=== PATIENT | female | born 1945 | race African-American/Black ===

== ENCOUNTER 2016-10-03 23:11 | Emergency (ER) | payer OTHER, MEDICAID ==
[~2016-10-03] VITALS: Ht 162.6 cm; Wt 50.0 kg
[~2016-10-03 23:11] MED LIST: ETOD400T2 PO; PRED5TAB48 PO; RANI150T7 PO; VITAMIN B6
[2016-10-03 23:22] VITALS: BP 152/86
== END 2016-10-04 01:00 | disposition left against medical advice (07) ==
LOC: ER 23:30
DX: Z53.21 Procedure and treatment not carried out due to patient leaving prior to being seen by health care provider (principal)

== ENCOUNTER 2016-10-25 10:58 | Inpatient (IN) | payer OTHER, MEDICAID ==
[~2016-10-25] VITALS: Ht 157.5 cm; Wt 49.9 kg
[2016-10-25] MEDS ORDERED: SODIUM CHLORIDE 0.9% 500 ML IV ONE (11:09)
[2016-10-25] MEDS ORDERED: LORAZEPAM 2MG/ML CPJ IV ONE (11:15)
[2016-10-25 11:46] LABS: BASOPHILS % 1.3 % (0.0-2.0); EOSINOPHILS % 0.4 % (0.0-5.0); LYMPHOCYTES % 12.3 % (20.0-50.0); MEAN CORPUSCULAR HEMOGLOBIN 20.6 pg (28.0-32.0); MEAN CORPUSCULAR VOLUME 70.9 fL (81.0-99.0); MEAN PLATELET VOLUME 8.3 fl (7.4-10.4); MONOCYTES % 6.5 % (2.0-8.0); NEUTROPHILS % 79.5 % (40.0-76.0); PLATELET 327 x1000/uL (130-400); RED BLOOD CELL COUNT 2.73 mill/uL (4.2-5.4); RED CELL DISTRIBUTION WIDTH 17.4 % (11.6-14.6)
[2016-10-25 11:47] LABS: CHLORIDE 112 mEq/L (98-107)
[2016-10-25 11:52] LABS: CARBON DIOXIDE 22 mEq/L (21-32); PARTIAL THROMBOPLASTIN TIME 24.3 sec (23.4-31.0); PROTHROMBIN TIME 10.1 sec (9.4-11.6)
[2016-10-25 11:57] LABS: TOTAL IRON BINDING CAPACITY 454 ug/dL (250-450)
[2016-10-25 12:02] LABS: HEMOGLOBIN. 5.6 g/dL (12.0-16.0)
[2016-10-25 12:03] LABS: HEMATOCRIT. 19.3 % (36.0-48.0)
[2016-10-25] MEDS ORDERED: LORAZEPAM 2MG/ML CPJ IV PRN (15:00)
[2016-10-25 16:17] LABS: FOLIC ACID (FOLATE) SERUM 15.2 ng/mL (>5.38)
[2016-10-25 19:30] VITALS: BP 128/81
[2016-10-25] MEDS: FOLIC ACID 1MG TABLET PO SCH (19:30)
[2016-10-25] MEDS: MULTIVITAMINS,THER W-MINERALS TABLET PO SCH (19:30)
[2016-10-25] MEDS: THIAMINE HCL 100MG TABLET PO SCH (19:30)
[2016-10-25 20:00] VITALS: BP 128/81
[2016-10-25 22:48] VITALS: BP 146/64
[2016-10-25 23:03] VITALS: BP 155/59
[2016-10-26] VITALS (11 sets, daily range): BP systolic 119–164; BP diastolic 56–88
[2016-10-26] MEDS: IPRATROPIUM/ALBUTEROL 0.5-3(2.5)MG/3ML NEB HHN SCH ×6 (00:44→21:16)
[2016-10-26] MEDS: SODIUM CHLORIDE 0.9% 1,000 ML IV SCH ×2 (04:00→18:48)
[2016-10-26 06:33] LABS: PARTIAL THROMBOPLASTIN TIME 22.6 sec (23.4-31.0); PROTHROMBIN TIME 10.1 sec (9.4-11.6)
[2016-10-26 07:08] LABS: HEMATOCRIT 25.8 % (36.0-48.0); HEMOGLOBIN 7.9 g/dL (12.0-16.0)
[2016-10-26] MEDS ORDERED: MORPHINE SULFATE 2 MG/ML CPJ (NOT FOR IM USE) IV NR (08:04)
[2016-10-26] MEDS: FOLIC ACID 1MG TABLET PO SCH (08:10)
[2016-10-26] MEDS: MULTIVITAMINS,THER W-MINERALS TABLET PO SCH (08:11)
[2016-10-26] MEDS: THIAMINE HCL 100MG TABLET PO SCH (08:11)
[2016-10-26] MEDS ORDERED: PANTOPRAZOLE SODIUM 40 MG/VIAL IV SCH (09:00)
[2016-10-26] MEDS ORDERED: MEDICATION NOT ON FORMULARY EA (Prednisone 5 MG) PO SCH (09:00)
[2016-10-26] MEDS ORDERED: PREDNISONE 5MG TABLET PO SCH (09:00)
[2016-10-26 12:29] LABS: BASOPHILS % 1.2 % (0.0-2.0); EOSINOPHILS % 0.9 % (0.0-5.0); HEMATOCRIT. 26.9 % (36.0-48.0); HEMOGLOBIN. 8.1 g/dL (12.0-16.0); LYMPHOCYTES % 13.9 % (20.0-50.0); MEAN CORPUSCULAR HEMOGLOBIN 22.2 pg (28.0-32.0); MEAN CORPUSCULAR VOLUME 73.7 fL (81.0-99.0); MEAN PLATELET VOLUME 8.3 fl (7.4-10.4); MONOCYTES % 7.9 % (2.0-8.0); NEUTROPHILS % 76.1 % (40.0-76.0); PLATELET 274 x1000/uL (130-400); RED BLOOD CELL COUNT 3.65 mill/uL (4.2-5.4)
[2016-10-26 12:44] LABS: CARBON DIOXIDE 21 mEq/L (21-32); CHLORIDE 114 mEq/L (98-107)
[2016-10-26 13:23] LABS: CLARITY URINE CLOUDY (CLEAR); COLOR URINE YELLOW (YELLOW); GLUCOSE URINE NEGATIVE (NEGATIVE); KETONES URINE NEGATIVE (NEGATIVE); LEUKOCYTE ESTERASE URINE 2+ (NEGATIVE); NITRITE URINE NEGATIVE (NEGATIVE); OCCULT BLOOD URINE NEGATIVE (NEGATIVE); PH URINE 6.5 (4.5-8.0); PROTEIN URINE NEGATIVE (NEGATIVE); SPECIFIC GRAVITY URINE 1.012 (1.005-1.030); UROBILINOGEN URINE 0.2 E.U./dL (0.2-1.0)
[2016-10-26 14:16] LABS: *AMPHETAMINES SCREEN URINE NEGATIVE (NEGATIVE); *BARBITURATES SCREEN URINE NEGATIVE (NEGATIVE); *BENZODIAZEPINES SCREEN URINE NEGATIVE (NEGATIVE); *COCAINE SCREEN URINE PRESUMTIVE POSITIVE (NEGATIVE); CANNABINOID URINE SCREEN NEGATIVE (NEGATIVE); METHADONE URINE SCREEN NEGATIVE (NEGATIVE); OPIATES URINE SCREEN PRESUMTIVE POSITIVE (NEGATIVE); PHENCYCLIDINE URINE SCREEN NEGATIVE (NEGATIVE)
[2016-10-26] MEDS ORDERED: CEFTRIAXONE 1 G PREMIX 50 ML IV SCH (22:00)
[2016-10-27] VITALS: BP 125/68
[2016-10-27 04:00] VITALS: BP 118/63
[2016-10-27] MEDS: SODIUM CHLORIDE 0.9% 1,000 ML IV SCH (06:28)
[2016-10-27 06:58] LABS: BASOPHILS % 1.6 % (0.0-2.0); HEMATOCRIT. 24.2 % (36.0-48.0); HEMOGLOBIN. 7.5 g/dL (12.0-16.0); LYMPHOCYTES % 13.5 % (20.0-50.0); MEAN CORPUSCULAR HEMOGLOBIN 22.4 pg (28.0-32.0); MEAN CORPUSCULAR VOLUME 72.4 fL (81.0-99.0); MEAN PLATELET VOLUME 8.7 fl (7.4-10.4); MONOCYTES % 8.2 % (2.0-8.0); NEUTROPHILS % 75.7 % (40.0-76.0); PLATELET 257 x1000/uL (130-400); RED BLOOD CELL COUNT 3.34 mill/uL (4.2-5.4); RED CELL DISTRIBUTION WIDTH 18.3 % (11.6-14.6)
[2016-10-27 08:00] VITALS: BP 166/78
[2016-10-27] MEDS: IPRATROPIUM/ALBUTEROL 0.5-3(2.5)MG/3ML NEB HHN SCH ×2 (08:00)
== END 2016-10-27 10:00 | disposition left against medical advice (07) | DRG 378 ==
LOC: ER 11:21 → 8WST 12:11 → EDBEDREQ 12:12 → EDBEDREQSVC 12:12 → ENRESERV 14:48
PROVIDERS: ADMIT Internal Medicine; ATTEND Internal Medicine
PROC: 30233N1 Transfusion of Nonautologous Red Blood Cells into Peripheral Vein, Percutaneous Approach (ICD-10-PCS; principal; 2016-10-26)
DX: K92.2 Gastrointestinal hemorrhage, unspecified (principal); F10.239 Alcohol dependence with withdrawal, unspecified; D50.0 Iron deficiency anemia secondary to blood loss (chronic); M06.9 Rheumatoid arthritis, unspecified; I12.9 Hypertensive chronic kidney disease with stage 1 through stage 4 chronic kidney disease, or unspecified chronic kidney disease; F14.90 Cocaine use, unspecified, uncomplicated; K64.8 Other hemorrhoids; K29.60 Other gastritis without bleeding; Z53.21 Procedure and treatment not carried out due to patient leaving prior to being seen by health care provider; F19.10 Other psychoactive substance abuse, uncomplicated; N18.9 Chronic kidney disease, unspecified; Z72.0 Tobacco use; Z90.49 Acquired absence of other specified parts of digestive tract; Z93.3 Colostomy status; Z79.899 Other long term (current) drug therapy; Z90.710 Acquired absence of both cervix and uterus
CPT/HCPCS: 36415; 71010; 76705; 80048; 80053; 80305; 81001; 82270; 82607; 82728; 82746; 83540; 83550; 83690; 85014; 85018; 85025; 85044; 85610; 85730; 86850; 86870; 86900; 86920; 87077; 87086; 87186; 93005; 94640; 94664; 96361; 96374; 99291; C1893; C9113; G0482; J0696; J2060; J2270; J7030; J7040; J7620; P9016

== ENCOUNTER 2016-10-31 10:05 | Emergency (ER) | payer OTHER, MEDICAID ==
[~2016-10-31] VITALS: Ht 160 cm; Wt 52.0 kg
[2016-10-31] MEDS ORDERED: METOCLOPRAMIDE HCL 10MG/2ML VIAL IV ONE (10:45)
[2016-10-31] MEDS ORDERED: KETOROLAC 30MG/ML VIAL IV ONE (10:45)
[2016-10-31] MEDS ORDERED: DIPHENHYDRAMINE 50MG/ML VIAL IV ONE (10:45)
[2016-10-31 11:22] LABS: BASOPHILS % 1.4 % (0.0-2.0); EOSINOPHILS % 2.1 % (0.0-5.0); HEMOGLOBIN. 8.2 g/dL (12.0-16.0); LYMPHOCYTES % 12.5 % (20.0-50.0); MEAN CORPUSCULAR HEMOGLOBIN 22.7 pg (28.0-32.0); MEAN CORPUSCULAR VOLUME 74.6 fL (81.0-99.0); MEAN PLATELET VOLUME 8.7 fl (7.4-10.4); MONOCYTES % 9.4 % (2.0-8.0); NEUTROPHILS % 74.6 % (40.0-76.0); PLATELET 268 x1000/uL (130-400); RED BLOOD CELL COUNT 3.62 mill/uL (4.2-5.4); RED CELL DISTRIBUTION WIDTH 19.6 % (11.6-14.6)
[2016-10-31 11:30] LABS: CARBON DIOXIDE 25 mEq/L (21-32); CHLORIDE 111 mEq/L (98-107)
[2016-10-31 12:15] VITALS: BP 134/70
== END 2016-10-31 14:10 | disposition left against medical advice (07) ==
LOC: ER 10:58
DX: G43.909 Migraine, unspecified, not intractable, without status migrainosus (principal); I10 Essential (primary) hypertension
CPT/HCPCS: 36415; 80053; 85025; 96374; 96375; 99284; J1200; J1885; J2765; J7040

== ENCOUNTER 2016-11-13 07:23 | Emergency (ER) | payer OTHER, MEDICAID ==
[~2016-11-13] VITALS: Ht 160 cm; Wt 53.0 kg
[2016-11-13] MEDS ORDERED: SODIUM CHLORIDE 0.9% 1,000 ML IV ONE (08:05)
[2016-11-13] MEDS ORDERED: MORPHINE SULFATE 4 MG/ML CPJ (NOT FOR IM USE) IV STA (08:05)
[2016-11-13] MEDS ORDERED: ONDANSETRON HCL 4MG/2ML VIAL IV STA (08:05)
[2016-11-13 08:34] LABS: CHLORIDE 113 mEq/L (98-107)
[2016-11-13 08:37] LABS: BASOPHILS % 1.8 % (0.0-2.0); EOSINOPHILS % 1.1 % (0.0-5.0); HEMATOCRIT. 26.7 % (36.0-48.0); HEMOGLOBIN. 8.1 g/dL (12.0-16.0); MEAN CORPUSCULAR HEMOGLOBIN 23.6 pg (28.0-32.0); MEAN CORPUSCULAR VOLUME 78.1 fL (81.0-99.0); MEAN PLATELET VOLUME 9.4 fl (7.4-10.4); MONOCYTES % 6.8 % (2.0-8.0); NEUTROPHILS % 81.3 % (40.0-76.0); PLATELET 327 x1000/uL (130-400); RED BLOOD CELL COUNT 3.42 mill/uL (4.2-5.4); RED CELL DISTRIBUTION WIDTH 25.8 % (11.6-14.6)
[2016-11-13 08:42] LABS: CARBON DIOXIDE 23 mEq/L (21-32)
[2016-11-13 08:45] LABS: TROPONIN I < 0.02 ng/mL (0.00-0.04)
[2016-11-13] MEDS ORDERED: ONDANSETRON HCL 4MG/2ML VIAL IV ONE (10:00)
[2016-11-13 10:12] LABS: PLATELET ESTIMATE NORMAL
[2016-11-13 10:21] LABS: CLARITY URINE CLEAR (CLEAR); COLOR URINE YELLOW (YELLOW); GLUCOSE URINE NEGATIVE (NEGATIVE); KETONES URINE NEGATIVE (NEGATIVE); LEUKOCYTE ESTERASE URINE 3+ (NEGATIVE); NITRITE URINE NEGATIVE (NEGATIVE); OCCULT BLOOD URINE 2+ (NEGATIVE); PH URINE 6.5 (4.5-8.0); PROTEIN URINE NEGATIVE (NEGATIVE); SPECIFIC GRAVITY URINE 1.021 (1.005-1.030); UROBILINOGEN URINE 0.2 E.U./dL (0.2-1.0)
[2016-11-13 12:35] VITALS: BP 131/67
[2016-11-13] MEDS ORDERED: IOHEXOL-300 100 ML BOTTLE ONE (15:06)
[2016-11-13] MEDS ORDERED: SODIUM CHLORIDE 0.9% 10ML VIAL ONE (15:06)
== END 2016-11-13 12:40 | disposition left against medical advice (07) ==
LOC: ER 07:35 → ENRESERV 14:34 → CANRESERV 14:34 → CANBEDREQ 16:17
DX: K62.89 Other specified diseases of anus and rectum (principal)
CPT/HCPCS: 36415; 71010; 74177; 80053; 81001; 83605; 83690; 83880; 84484; 85025; 85610; 93005; 96361; 96374; 96375; 96376; 99285; A4216; J2270; J2405; J7030; Q9967